=== PATIENT | female | born 1940 | race Caucasian/White ===

== ENCOUNTER 2018-04-12 13:47 | Inpatient (IN) | payer OTHER ==
[~2018-04-12] VITALS: Ht 170.2 cm; Wt 132.6 kg
[~2018-04-12 13:47] MED LIST: CEFD300C37 PO; COLE625T12 PO; DOXY100T PO; FLUT1DIS3 INH; FURO-92 PO; IPRA3AMP30 INH; LIDO20SO MM; LOSA25TA6 PO; METF500T27 PO; NYST1000 PO; PARO20TA98 PO; PRED20TA PO; SPIR100T4 PO; TIOT18CA INH; ZOLP-413 PO
[2018-04-12] MEDS ORDERED: ALBUTEROL/IPRATROPIUM 2.5MG/0.5MG, 3 ML NEB ONE (14:00)
[2018-04-12] MEDS ORDERED: SODIUM CHLORIDE FLUSH 10ML SYR IVF ONE (14:00)
[2018-04-12] MEDS ORDERED: PLEASE ENTER HEIGHT AND WEIGHT MC SCH (14:00)
[2018-04-12] MEDS ORDERED: methylPREDNISolone SOD SUCC 125 MG/2 ML IVP ONE (14:00)
[2018-04-12] MEDS ORDERED: ALBUTEROL/IPRATROPIUM 2.5MG/0.5MG, 3 ML ONE ×2 (14:05→14:20)
[2018-04-12] MEDS ORDERED: methylPREDNISolone SOD SUCC 125 MG/2 ML ONE (14:20)
[2018-04-12 14:34] LABS: CHLORIDE 100 mmol/L (98-107)
[2018-04-12 14:38] LABS: INTERNATIONAL NORMALIZED RATIO 0.97 (0.93-1.1)
[2018-04-12 14:40] LABS: ALBUMIN 3.1 g/dL (3.4-5.0); ANION GAP 7 mmol/L (5-15); CALCIUM 8.6 mg/dL (8.5-10.1)
[2018-04-12 14:59] LABS: ALANINE AMINOTRANSFERASE 27 U/L (12-78); ALKALINE PHOSPHATASE 102 U/L (45-117); BILIRUBIN,TOTAL 0.6 mg/dL (0.2-1.0); CREATININE 0.74 mg/dL (0.55-1.02); TOTAL PROTEIN 7.7 g/dL (6.4-8.2)
[2018-04-12] MEDS ORDERED: CEFTRIAXONE 1,000 MG in SODIUM CHLORIDE 0.9% 50 ML IV ONE (15:00)
[2018-04-12] MEDS ORDERED: FUROSEMIDE 40 MG/4 ML IV ONE (15:00)
[2018-04-12] MEDS ORDERED: AZITHROMYCIN 500 MG in SODIUM CHLORIDE 0.9% 250 ML IV ONE (15:00)
[2018-04-12 15:05] LABS: TROPONIN I 0.194 ng/mL (0.000-0.045)
[2018-04-12 15:06] LABS: MEAN CORPUSCULAR HEMOGLOBIN 28.5 pg (27.0-34.8); MEAN PLATELET VOLUME 8.3 fL (7.4-10.4); PLATELET COUNT 340 x10^3/uL (130-400); RED CELL DISTRIBUTION WIDTH 16.2 % (9.6-15.2)
[2018-04-12 15:10] LABS: MD YES
[2018-04-12] MEDS ORDERED: CEFTRIAXONE PMX 1GM/50ML 50 ML ONE (15:10)
[2018-04-12] MEDS ORDERED: FUROSEMIDE 40 MG/4 ML ONE (15:10)
[2018-04-12] MEDS ORDERED: ALBUTEROL SULFATE 2.5 MG/3 ML NPPB ONE (15:30)
[2018-04-12 15:55] LABS: BAND#(MANUAL) 1.32 x10^3/uL; BANDS%(MANUAL) 6 % (0-7); LYMPHS% (MANUAL) 10 % (22-44); MONOS% (MANUAL) 10 % (2-9); SEG#(MANUAL) 16.28 x10^3/uL (1.8-6.8); SEGS% (MANUAL) 74 % (42-75)
[2018-04-12 15:56] LABS: HYPOCHROMIA 1+; MICROCYTOSIS 1+; POLYCHROMASIA 1+
[2018-04-12 15:57] LABS: <PLATELET ESTIMATE> ADEQUATE; <PLT MORPHOLOGY> NORMAL PLT MORPH
[2018-04-12] MEDS ORDERED: ASPIRIN 81 MG TABLET CHEW ONE (16:48)
[2018-04-12] MEDS ORDERED: ASPIRIN 81 MG TABLET CHEW PO ONE (17:00)
[2018-04-12] MEDS ORDERED: ALBUTEROL SULFATE 2.5 MG/3 ML ONE (17:23)
[2018-04-12] MEDS ORDERED: TRAZODONE 50MG TABLET PO PRN (17:30)
[2018-04-12] MEDS ORDERED: ONDANSETRON ODT 4 MG PO PRN (17:30)
[2018-04-12] MEDS ORDERED: BISACODYL 10 MG SUPP PR PRN (17:30)
[2018-04-12] MEDS ORDERED: hydrALAzine 20 MG/ML, 1ML IVPush PRN (17:30)
[2018-04-12] MEDS ORDERED: DOCUSATE 100 MG CAPSULE PO PRN (17:30)
[2018-04-12] MEDS ORDERED: NITROGLYCERIN 0.4 MG BOTTLE (25 TABS) SL PRN (17:30)
[2018-04-12] MEDS ORDERED: ENALAPRILAT 1.25 MG/ML, 2ML IVPush PRN (17:30)
[2018-04-12 17:56] LABS: HCT (SEDRATE) 34.1 % (34.6-47.8)
[2018-04-12 18:12] LABS: TROPONIN I 0.152 ng/mL (0.000-0.045)
[2018-04-12 18:23] LABS: HEMOGLOBIN A1C 6.2 % (4.2-6.3)
[2018-04-12 20:00] VITALS: BP 111/69
[2018-04-12] MEDS: methylPREDNISolone SOD SUCC 125 MG/2 ML IVPush SCH (21:50)
[2018-04-12] MEDS: LEVOFLOXACIN/PMX 750MG/150ML 150 ML IV SCH (21:50)
[2018-04-12] MEDS: FAMOTIDINE 20 MG TABLET PO SCH (21:50)
[2018-04-12] MEDS: HEPARIN 5,000 UNITS/ML, 1ML SQ SCH (21:50)
[2018-04-12] MEDS: INSULIN LISPRO 100 UNITS/ML, PEN SQ-INSULIN SCH (21:51)
[2018-04-12] MEDS: ALBUTEROL/IPRATROPIUM 2.5MG/0.5MG, 3 ML NPPB SCH (22:00)
[2018-04-12 23:31] LABS: TROPONIN I 0.137 ng/mL (0.000-0.045)
[2018-04-13 02:00] VITALS: BP 145/77
[2018-04-13] MEDS: methylPREDNISolone SOD SUCC 125 MG/2 ML IVPush SCH ×4 (03:41→21:01)
[2018-04-13] MEDS: ASPIRIN 325 MG TABLET EC PO SCH (05:03)
[2018-04-13] MEDS: HEPARIN 5,000 UNITS/ML, 1ML SQ SCH ×3 (05:25→23:13)
[2018-04-13 05:51] LABS: BASOPHILS % (AUTO) 0 % (0-1); EOSINOPHILS % (AUTO) 0 % (1-7); LYMPHOCYTES # (AUTO) 0.64 x10^3/uL (1-3.4); LYMPHOCYTES % (AUTO) 4 % (22-44); MD NO; MEAN CORPUSCULAR HEMOGLOBIN 28.4 pg (27.0-34.8); MEAN CORPUSCULAR HGB CONC 32.4 g/dL (32.4-35.8); MEAN CORPUSCULAR VOLUME 87.6 fL (80-100); MEAN PLATELET VOLUME 7.9 fL (7.4-10.4); MONOCYTES # (AUTO) 0.36 x10^3/uL (0.2-0.8); MONOCYTES % (AUTO) 2 % (2-9); NEUTROPHILS # (AUTO) 15.27 x10^3/uL (1.8-6.8); NEUTROPHILS % (AUTO) 94 % (42-75); PLATELET COUNT 384 x10^3/uL (130-400); RED BLOOD COUNT 4.03 x10^6/uL (3.82-5.3); RED CELL DISTRIBUTION WIDTH 16.2 % (9.6-15.2)
[2018-04-13 06:04] LABS: ANION GAP 4 mmol/L (5-15); CALCIUM 8.9 mg/dL (8.5-10.1); CHLORIDE 100 mmol/L (98-107); CHOLESTEROL, TOTAL 161 mg/dL (140-239); CREATININE 0.91 mg/dL (0.55-1.02); TRIGLYCERIDES 105 mg/dL (50-200); VLDL CHOLESTEROL 21 mg/dL (0-25)
[2018-04-13 06:07] LABS: CHOL/HDL RATIO 2.4; HDL CHOL % 41 % (28-40); HDL CHOLESTEROL (DIRECT) 66 mg/dL (40-60); LDL CHOLESTEROL,CALCULATED 74 mg/dL (54-169); LDL/HDL RATIO 1.1 (0.5-3.0)
[2018-04-13 06:16] LABS: MICROSCOPIC INDICATED
[2018-04-13 06:17] LABS: CULTURE INDICATED? YES
[2018-04-13 07:20] VITALS: BP 124/76
[2018-04-13] MEDS: ALBUTEROL/IPRATROPIUM 2.5MG/0.5MG, 3 ML NPPB SCH ×5 (07:45→22:44)
[2018-04-13] MEDS: FAMOTIDINE 20 MG TABLET PO SCH ×2 (08:52→21:01)
[2018-04-13] MEDS: INSULIN LISPRO 100 UNITS/ML, PEN SQ-INSULIN SCH ×4 (08:52→21:01)
[2018-04-13 14:19] VITALS: BP 128/79
[2018-04-13 20:58] VITALS: BP 126/72
[2018-04-13] MEDS: LEVOFLOXACIN/PMX 750MG/150ML 150 ML IV SCH (21:00)
[2018-04-14] MEDS: GUAIFENESIN/DM 200-20MG, 10ML UDC PO PRN (01:25)
[2018-04-14 01:36] VITALS: BP 135/43
[2018-04-14] MEDS: methylPREDNISolone SOD SUCC 125 MG/2 ML IVPush SCH ×4 (03:06→21:06)
[2018-04-14] MEDS: ALBUTEROL/IPRATROPIUM 2.5MG/0.5MG, 3 ML NPPB SCH ×6 (03:19→22:00)
[2018-04-14] MEDS ORDERED: HYDROcodone/CHLORPHENIR ORAL SUSP PO ONE (03:30)
[2018-04-14] MEDS: BENZONATATE 100 MG CAPSULE PO SCH ×4 (03:35→21:04)
[2018-04-14] MEDS: ASPIRIN 325 MG TABLET EC PO SCH (05:12)
[2018-04-14 06:21] LABS: ANION GAP 4 mmol/L (5-15); CALCIUM 8.8 mg/dL (8.5-10.1); CHLORIDE 101 mmol/L (98-107); CREATININE 0.96 mg/dL (0.55-1.02)
[2018-04-14 06:23] LABS: BASOPHILS % (AUTO) 0 % (0-1); EOSINOPHILS % (AUTO) 0 % (1-7); LYMPHOCYTES # (AUTO) 0.52 x10^3/uL (1-3.4); LYMPHOCYTES % (AUTO) 3 % (22-44); MD NO; MEAN CORPUSCULAR HEMOGLOBIN 27.7 pg (27.0-34.8); MEAN CORPUSCULAR HGB CONC 31.9 g/dL (32.4-35.8); MEAN CORPUSCULAR VOLUME 86.9 fL (80-100); MEAN PLATELET VOLUME 7.7 fL (7.4-10.4); MONOCYTES # (AUTO) 0.47 x10^3/uL (0.2-0.8); MONOCYTES % (AUTO) 3 % (2-9); NEUTROPHILS # (AUTO) 14.41 x10^3/uL (1.8-6.8); NEUTROPHILS % (AUTO) 94 % (42-75); PLATELET COUNT 382 x10^3/uL (130-400); RED BLOOD COUNT 3.59 x10^6/uL (3.82-5.3); RED CELL DISTRIBUTION WIDTH 15.9 % (9.6-15.2)
[2018-04-14 07:47] VITALS: BP 138/80
[2018-04-14] MEDS: HEPARIN 5,000 UNITS/ML, 1ML SQ SCH ×2 (08:42→16:21)
[2018-04-14] MEDS: INSULIN LISPRO 100 UNITS/ML, PEN SQ-INSULIN SCH ×4 (08:43→21:06)
[2018-04-14] MEDS: FAMOTIDINE 20 MG TABLET PO SCH ×2 (08:44→21:05)
[2018-04-14] MEDS ORDERED: GABA800T2 PO (10:07)
[2018-04-14 13:06] VITALS: BP 135/73
[2018-04-14 20:42] VITALS: BP 127/67
[2018-04-14] MEDS: PAROXETINE 20 MG TABLET PO SCH (21:05)
[2018-04-14] MEDS: GABAPENTIN 400 MG CAPSULE PO SCH (21:05)
[2018-04-14] MEDS: COLESEVELAM 625 MG TABLET PO SCH (21:05)
[2018-04-14] MEDS: LEVOFLOXACIN/PMX 750MG/150ML 150 ML IV SCH (21:06)
[2018-04-15] MEDS: HEPARIN 5,000 UNITS/ML, 1ML SQ SCH ×3 (00:10→16:44)
[2018-04-15 01:14] VITALS: BP 141/71
[2018-04-15] MEDS: methylPREDNISolone SOD SUCC 125 MG/2 ML IVPush SCH ×4 (03:25→20:42)
[2018-04-15 05:07] LABS: BASOPHILS % (AUTO) 0 % (0-1); EOSINOPHILS % (AUTO) 0 % (1-7); LYMPHOCYTES # (AUTO) 0.61 x10^3/uL (1-3.4); LYMPHOCYTES % (AUTO) 4 % (22-44); MD NO; MEAN CORPUSCULAR HEMOGLOBIN 28.4 pg (27.0-34.8); MEAN CORPUSCULAR HGB CONC 32.1 g/dL (32.4-35.8); MEAN CORPUSCULAR VOLUME 88.4 fL (80-100); MEAN PLATELET VOLUME 7.7 fL (7.4-10.4); MONOCYTES # (AUTO) 0.52 x10^3/uL (0.2-0.8); MONOCYTES % (AUTO) 4 % (2-9); NEUTROPHILS # (AUTO) 13.12 x10^3/uL (1.8-6.8); NEUTROPHILS % (AUTO) 92 % (42-75); PLATELET COUNT 379 x10^3/uL (130-400); RED BLOOD COUNT 3.77 x10^6/uL (3.82-5.3); RED CELL DISTRIBUTION WIDTH 15.8 % (9.6-15.2)
[2018-04-15 05:26] LABS: ANION GAP 5 mmol/L (5-15); CALCIUM 8.5 mg/dL (8.5-10.1); CHLORIDE 102 mmol/L (98-107); CREATININE 0.81 mg/dL (0.55-1.02)
[2018-04-15] MEDS: ASPIRIN 325 MG TABLET EC PO SCH (05:35)
[2018-04-15] MEDS: ALBUTEROL/IPRATROPIUM 2.5MG/0.5MG, 3 ML NPPB SCH ×5 (06:00→21:22)
[2018-04-15] MEDS: INSULIN LISPRO 100 UNITS/ML, PEN SQ-INSULIN SCH ×4 (07:00→20:44)
[2018-04-15 07:19] VITALS: BP 158/94
[2018-04-15] MEDS: FAMOTIDINE 20 MG TABLET PO SCH ×2 (09:32→20:42)
[2018-04-15] MEDS: COLESEVELAM 625 MG TABLET PO SCH ×2 (09:32→20:42)
[2018-04-15] MEDS: BENZONATATE 100 MG CAPSULE PO SCH ×3 (09:33→20:42)
[2018-04-15] MEDS: GABAPENTIN 400 MG CAPSULE PO SCH ×2 (09:33→20:42)
[2018-04-15 13:49] VITALS: BP 169/85
[2018-04-15] MEDS ORDERED: GUAIFENESIN/DM 200-20MG, 10ML UDC PO PRN (16:30)
[2018-04-15] MEDS: GUAIFENESIN/DM 200-20MG, 10ML UDC PO PRN (16:44)
[2018-04-15 20:38] VITALS: BP 144/82
[2018-04-15] MEDS: LEVOFLOXACIN/PMX 750MG/150ML 150 ML IV SCH (20:43)
[2018-04-15] MEDS: PAROXETINE 20 MG TABLET PO SCH (20:57)
[2018-04-15] MEDS: LEVOFLOXACIN 750 MG TABLET PO SCH (21:00)
[2018-04-16 02:17] VITALS: BP 155/76
[2018-04-16] MEDS: methylPREDNISolone SOD SUCC 125 MG/2 ML IVPush SCH ×4 (03:17→21:54)
[2018-04-16] MEDS: ASPIRIN 325 MG TABLET EC PO SCH (05:39)
[2018-04-16 06:10] LABS: MEAN CORPUSCULAR VOLUME 87.8 fL (80-100); MEAN PLATELET VOLUME 7.7 fL (7.4-10.4); PLATELET COUNT 397 x10^3/uL (130-400); RED BLOOD COUNT 3.82 x10^6/uL (3.82-5.3)
[2018-04-16 06:14] LABS: CHLORIDE 100 mmol/L (98-107)
[2018-04-16 06:15] LABS: ANION GAP 4 mmol/L (5-15); CALCIUM 8.4 mg/dL (8.5-10.1); CREATININE 0.81 mg/dL (0.55-1.02)
[2018-04-16] MEDS: ALBUTEROL/IPRATROPIUM 2.5MG/0.5MG, 3 ML NPPB SCH ×5 (06:45→22:00)
[2018-04-16] MEDS: INSULIN LISPRO 100 UNITS/ML, PEN SQ-INSULIN SCH ×4 (07:00→22:00)
[2018-04-16 07:36] LABS: BASOPHILS % (AUTO) 0 % (0-1); EOSINOPHILS # (AUTO) 0.01 x10^3/uL (0-0.4); EOSINOPHILS % (AUTO) 0 % (1-7); LYMPHOCYTES # (AUTO) 0.73 x10^3/uL (1-3.4); LYMPHOCYTES % (AUTO) 5 % (22-44); MD MORPH REVIEW ONLY; MONOCYTES # (AUTO) 0.61 x10^3/uL (0.2-0.8); MONOCYTES % (AUTO) 4 % (2-9); NEUTROPHILS # (AUTO) 14.91 x10^3/uL (1.8-6.8); NEUTROPHILS % (AUTO) 92 % (42-75)
[2018-04-16 07:38] LABS: ANISOCYTOSIS 1+; BASOPHILLIC STIPPLING 1+; POLYCHROMASIA 1+
[2018-04-16 07:39] LABS: <PLATELET ESTIMATE> ADEQUATE; <PLT MORPHOLOGY> NORMAL PLT MORPH
[2018-04-16 08:00] VITALS: BP 179/117
[2018-04-16] MEDS: BENZONATATE 100 MG CAPSULE PO SCH ×3 (08:34→21:55)
[2018-04-16] MEDS: COLESEVELAM 625 MG TABLET PO SCH ×2 (08:34→21:54)
[2018-04-16] MEDS: HEPARIN 5,000 UNITS/ML, 1ML SQ SCH ×3 (08:34→16:33)
[2018-04-16] MEDS: FAMOTIDINE 20 MG TABLET PO SCH ×2 (08:34→21:55)
[2018-04-16] MEDS: GABAPENTIN 400 MG CAPSULE PO SCH ×2 (08:34→21:54)
[2018-04-16 14:08] VITALS: BP 149/79
[2018-04-16] MEDS: GUAIFENESIN/DM 200-20MG, 10ML UDC PO PRN (14:10)
[2018-04-16] MEDS: LEVOFLOXACIN 750 MG TABLET PO SCH (21:55)
[2018-04-16] MEDS: PAROXETINE 20 MG TABLET PO SCH (21:55)
[2018-04-16 22:49] VITALS: BP 163/77
[2018-04-17] MEDS: HEPARIN 5,000 UNITS/ML, 1ML SQ SCH ×3 (00:38→16:37)
[2018-04-17 00:39] VITALS: BP 136/72
[2018-04-17] MEDS: methylPREDNISolone SOD SUCC 125 MG/2 ML IVPush SCH ×4 (03:42→21:57)
[2018-04-17] MEDS: ASPIRIN 325 MG TABLET EC PO SCH (05:58)
[2018-04-17 06:03] LABS: MEAN CORPUSCULAR HEMOGLOBIN 28.2 pg (27.0-34.8); MEAN CORPUSCULAR HGB CONC 32.1 g/dL (32.4-35.8); MEAN CORPUSCULAR VOLUME 88.1 fL (80-100); MEAN PLATELET VOLUME 7.1 fL (7.4-10.4); PLATELET COUNT 362 x10^3/uL (130-400); RED BLOOD COUNT 3.85 x10^6/uL (3.82-5.3); RED CELL DISTRIBUTION WIDTH 15.3 % (9.6-15.2)
[2018-04-17 06:19] LABS: CHLORIDE 102 mmol/L (98-107)
[2018-04-17 06:29] LABS: ANION GAP 7 mmol/L (5-15); CREATININE 0.81 mg/dL (0.55-1.02)
[2018-04-17 07:00] LABS: MD YES
[2018-04-17] MEDS: INSULIN LISPRO 100 UNITS/ML, PEN SQ-INSULIN SCH ×4 (07:00→21:26)
[2018-04-17 07:01] LABS: BAND#(MANUAL) 1.18 x10^3/uL; BANDS%(MANUAL) 7 % (0-7); LYMPH#(MANUAL) 1.18 x10^3/uL (1-3.4); LYMPHS% (MANUAL) 7 % (22-44); METAMYELOCYTES# (MANUAL) 0.34 x10^3/uL (0-0); METAMYELOCYTES% (MANUAL) 2 % (0-1); MONOS% (MANUAL) 3 % (2-9); MYELOCYTES# (MANUAL) 0.17 x10^3/uL (0-0); MYELOCYTES% (MANUAL) 1 % (0-0); SEG#(MANUAL) 13.44 x10^3/uL (1.8-6.8); SEGS% (MANUAL) 80 % (42-75)
[2018-04-17 07:02] LABS: ANISOCYTOSIS 1+; BASOPHILLIC STIPPLING 1+; POLYCHROMASIA 1+
[2018-04-17 07:03] LABS: <PLATELET ESTIMATE> ADEQUATE; <PLT MORPHOLOGY> NORMAL PLT MORPH
[2018-04-17] MEDS: ALBUTEROL/IPRATROPIUM 2.5MG/0.5MG, 3 ML NPPB SCH ×4 (07:15→18:59)
[2018-04-17] MEDS: GABAPENTIN 400 MG CAPSULE PO SCH ×2 (07:59→21:23)
[2018-04-17] MEDS: FAMOTIDINE 20 MG TABLET PO SCH ×2 (07:59→21:24)
[2018-04-17] MEDS: COLESEVELAM 625 MG TABLET PO SCH ×2 (07:59→21:23)
[2018-04-17] MEDS: BENZONATATE 100 MG CAPSULE PO SCH ×3 (07:59→21:24)
[2018-04-17 08:18] VITALS: BP 155/81
[2018-04-17 13:50] VITALS: BP 179/89
[2018-04-17 14:35] VITALS: BP 155/85
[2018-04-17 19:06] VITALS: BP 142/62
[2018-04-17] MEDS: HEMORRHOIDAL OINT, 28 GM (PREP H) RC PRN (21:20)
[2018-04-17] MEDS: LEVOFLOXACIN 750 MG TABLET PO SCH (21:23)
[2018-04-17] MEDS: PAROXETINE 20 MG TABLET PO SCH (21:23)
[2018-04-18] MEDS: HEPARIN 5,000 UNITS/ML, 1ML SQ SCH ×3 (00:27→16:58)
[2018-04-18 00:59] VITALS: BP 135/67
[2018-04-18] MEDS: methylPREDNISolone SOD SUCC 125 MG/2 ML IVPush SCH ×2 (03:16→09:05)
[2018-04-18] MEDS: ASPIRIN 325 MG TABLET EC PO SCH (04:57)
[2018-04-18 07:00] VITALS: BP 159/76
[2018-04-18] MEDS: INSULIN LISPRO 100 UNITS/ML, PEN SQ-INSULIN SCH ×4 (07:00→21:49)
[2018-04-18 07:02] LABS: CALCIUM 8.1 mg/dL (8.5-10.1); CREATININE 0.77 mg/dL (0.55-1.02)
[2018-04-18 07:10] LABS: ANION GAP 4 mmol/L (5-15); CHLORIDE 100 mmol/L (98-107)
[2018-04-18 07:38] LABS: MEAN CORPUSCULAR HEMOGLOBIN 27.9 pg (27.0-34.8); MEAN CORPUSCULAR VOLUME 86.9 fL (80-100); MEAN PLATELET VOLUME 7.1 fL (7.4-10.4); PLATELET COUNT 371 x10^3/uL (130-400); RED BLOOD COUNT 3.96 x10^6/uL (3.82-5.3); RED CELL DISTRIBUTION WIDTH 15.8 % (9.6-15.2)
[2018-04-18] MEDS: ALBUTEROL/IPRATROPIUM 2.5MG/0.5MG, 3 ML NPPB SCH ×4 (07:55→18:50)
[2018-04-18 08:02] LABS: MD YES
[2018-04-18 08:03] LABS: LYMPH#(MANUAL) 1.63 x10^3/uL (1-3.4); LYMPHS% (MANUAL) 9 % (22-44); METAMYELOCYTES# (MANUAL) 0.36 x10^3/uL (0-0); METAMYELOCYTES% (MANUAL) 2 % (0-1); MONOS#(MANUAL) 1.27 x10^3/uL (0.3-2.7); MONOS% (MANUAL) 7 % (2-9); MYELOCYTES# (MANUAL) 0.18 x10^3/uL (0-0); MYELOCYTES% (MANUAL) 1 % (0-0)
[2018-04-18 08:04] LABS: BAND#(MANUAL) 0.91 x10^3/uL; BANDS%(MANUAL) 5 % (0-7); SEGS% (MANUAL) 76 % (42-75)
[2018-04-18 08:05] LABS: <PLATELET ESTIMATE> ADEQUATE; <PLT MORPHOLOGY> NORMAL PLT MORPH
[2018-04-18 08:06] LABS: ANISOCYTOSIS 1+
[2018-04-18] MEDS: FAMOTIDINE 20 MG TABLET PO SCH ×2 (09:05→21:48)
[2018-04-18] MEDS: GABAPENTIN 400 MG CAPSULE PO SCH ×2 (09:05→21:49)
[2018-04-18] MEDS: BENZONATATE 100 MG CAPSULE PO SCH ×3 (09:05→21:48)
[2018-04-18] MEDS: COLESEVELAM 625 MG TABLET PO SCH ×2 (09:06→21:48)
[2018-04-18] MEDS: HEMORRHOIDAL OINT, 28 GM (PREP H) RC PRN ×2 (12:24→18:17)
[2018-04-18 12:55] VITALS: BP 159/88
[2018-04-18 18:59] VITALS: BP 151/78
[2018-04-18] MEDS: LEVOFLOXACIN 750 MG TABLET PO SCH (21:48)
[2018-04-18] MEDS: PAROXETINE 20 MG TABLET PO SCH (21:49)
[2018-04-19] MEDS: HEPARIN 5,000 UNITS/ML, 1ML SQ SCH ×3 (00:17→16:08)
[2018-04-19 01:21] VITALS: BP 151/69
[2018-04-19] MEDS: HEMORRHOIDAL OINT, 28 GM (PREP H) RC PRN ×2 (04:39→22:10)
[2018-04-19] MEDS: ASPIRIN 325 MG TABLET EC PO SCH (06:26)
[2018-04-19] MEDS: ALBUTEROL/IPRATROPIUM 2.5MG/0.5MG, 3 ML NPPB SCH ×4 (07:00→19:33)
[2018-04-19] MEDS: INSULIN LISPRO 100 UNITS/ML, PEN SQ-INSULIN SCH ×4 (07:00→21:30)
[2018-04-19 07:11] VITALS: BP 157/81
[2018-04-19] MEDS: ACETAMINOPHEN 325 MG TABLET PO PRN (07:35)
[2018-04-19] MEDS: GABAPENTIN 400 MG CAPSULE PO SCH ×2 (08:28→21:31)
[2018-04-19] MEDS: FAMOTIDINE 20 MG TABLET PO SCH ×2 (08:28→21:30)
[2018-04-19] MEDS: BENZONATATE 100 MG CAPSULE PO SCH ×3 (08:28→21:31)
[2018-04-19] MEDS: COLESEVELAM 625 MG TABLET PO SCH ×2 (08:29→21:31)
[2018-04-19 12:13] VITALS: BP 133/72
[2018-04-19 20:35] VITALS: BP 153/77
[2018-04-19] MEDS: PAROXETINE 20 MG TABLET PO SCH (21:31)
[2018-04-20] MEDS: HEPARIN 5,000 UNITS/ML, 1ML SQ SCH ×3 (00:16→16:00)
[2018-04-20] MEDS: ACETAMINOPHEN 325 MG TABLET PO PRN ×2 (00:16→08:28)
[2018-04-20 01:15] VITALS: BP 157/83
[2018-04-20] MEDS: ASPIRIN 325 MG TABLET EC PO SCH (06:00)
[2018-04-20 06:24] LABS: MEAN CORPUSCULAR HGB CONC 32.1 g/dL (32.4-35.8); MEAN CORPUSCULAR VOLUME 87.3 fL (80-100); MEAN PLATELET VOLUME 7.2 fL (7.4-10.4); PLATELET COUNT 326 x10^3/uL (130-400); RED BLOOD COUNT 3.87 x10^6/uL (3.82-5.3); RED CELL DISTRIBUTION WIDTH 16.4 % (9.6-15.2)
[2018-04-20 06:26] LABS: CHLORIDE 98 mmol/L (98-107)
[2018-04-20 06:32] LABS: ANION GAP 4 mmol/L (5-15); CALCIUM 7.8 mg/dL (8.5-10.1)
[2018-04-20 06:40] VITALS: BP 162/77
[2018-04-20 06:43] LABS: BASOPHILS # (AUTO) 0.02 x10^3/uL (0-0.1); BASOPHILS % (AUTO) 0 % (0-1); EOSINOPHILS # (AUTO) 0.02 x10^3/uL (0-0.4); EOSINOPHILS % (AUTO) 0 % (1-7); LYMPHOCYTES % (AUTO) 6 % (22-44); MD SCAN; MONOCYTES # (AUTO) 0.89 x10^3/uL (0.2-0.8); MONOCYTES % (AUTO) 5 % (2-9); NEUTROPHILS # (AUTO) 17.91 x10^3/uL (1.8-6.8); NEUTROPHILS % (AUTO) 89 % (42-75)
[2018-04-20] MEDS: INSULIN LISPRO 100 UNITS/ML, PEN SQ-INSULIN SCH ×3 (07:00→16:00)
[2018-04-20] MEDS: ALBUTEROL/IPRATROPIUM 2.5MG/0.5MG, 3 ML NPPB SCH ×3 (07:20→14:14)
[2018-04-20] MEDS: BENZONATATE 100 MG CAPSULE PO SCH ×2 (08:11→16:00)
[2018-04-20] MEDS: FAMOTIDINE 20 MG TABLET PO SCH (08:11)
[2018-04-20] MEDS: COLESEVELAM 625 MG TABLET PO SCH (08:11)
[2018-04-20] MEDS: GABAPENTIN 400 MG CAPSULE PO SCH (08:12)
[2018-04-20 12:06] VITALS: BP 150/71
[2018-04-20] MEDS ORDERED: BENZ-17 PO (14:14)
[2018-04-20] MEDS ORDERED: PRED20TA PO (14:14)
[2018-04-20] MEDS ORDERED: FURO-92 PO (14:14)
== END 2018-04-20 18:02 | disposition home health service (06) | DRG 871 ==
LOC: ED 16:41 → EDIP 16:42 → ED 16:51 → 4WST 17:52
PROVIDERS: ADMIT Hospitalist; ATTEND Hospitalist
PROC: 5A09357 Assistance with Respiratory Ventilation, Less than 24 Consecutive Hours, Continuous Positive Airway Pressure (ICD-10-PCS; principal; 2018-04-12)
PROC: 5A09357 Assistance with Respiratory Ventilation, Less than 24 Consecutive Hours, Continuous Positive Airway Pressure (ICD-10-PCS; 2018-04-13)
PROC: 5A09357 Assistance with Respiratory Ventilation, Less than 24 Consecutive Hours, Continuous Positive Airway Pressure (ICD-10-PCS; 2018-04-15)
PROC: 5A09357 Assistance with Respiratory Ventilation, Less than 24 Consecutive Hours, Continuous Positive Airway Pressure (ICD-10-PCS; 2018-04-16)
PROC: 5A09357 Assistance with Respiratory Ventilation, Less than 24 Consecutive Hours, Continuous Positive Airway Pressure (ICD-10-PCS; 2018-04-17)
DX: A41.9 Sepsis, unspecified organism (principal); I50.33 Acute on chronic diastolic (congestive) heart failure; J96.21 Acute and chronic respiratory failure with hypoxia; J18.9 Pneumonia, unspecified organism; J44.1 Chronic obstructive pulmonary disease with (acute) exacerbation; J44.0 Chronic obstructive pulmonary disease with (acute) lower respiratory infection; Z68.42 Body mass index [BMI] 45.0-49.9, adult; I11.0 Hypertensive heart disease with heart failure; T38.0X5A Adverse effect of glucocorticoids and synthetic analogues, initial encounter; E11.65 Type 2 diabetes mellitus with hyperglycemia; E66.9 Obesity, unspecified; G47.33 Obstructive sleep apnea (adult) (pediatric); D72.829 Elevated white blood cell count, unspecified; Z87.891 Personal history of nicotine dependence; Z90.710 Acquired absence of both cervix and uterus; Z99.81 Dependence on supplemental oxygen; Z90.49 Acquired absence of other specified parts of digestive tract
CPT/HCPCS: 36415; 71045; 71046; 80048; 80053; 80061; 81001; 82962; 83036; 83605; 83735; 83880; 84100; 84145; 84439; 84443; 84484; 85025; 85610; 85651; 85730; 87040; 87086; 93005; 93306; 93970; 94640; 96365; 96366; 96367; 96375; 99291; G0378; J0456; J0696; J1644; J1940; J1956; J7613; J7620; J1815; J2930; J7050; J7512

== ENCOUNTER 2020-04-08 14:07 | Emergency (ER) | payer MEDICARE ==
[~2020-04-08] VITALS: Ht 170.2 cm; Wt 122.0 kg
[~2020-04-08 14:07] MED LIST changes: +BENZ-17 PO; +GABA800T5 PO; +LOSA25TA25 PO; -LOSA25TA6 PO
--- NOTE | 2020-04-08 14:20 | NUR ---
PT REPORTS INCREASE IN PAIN ON RIGHT LOWER LEG WOUND. PLACED ON VITALS MONITORS, FALL PRECAUTIONS IN PLACE. CALL LIGHT WITHIN REACH.
[2020-04-08] MEDS ORDERED: SODIUM CHLORIDE FLUSH 10ML SYR IVF ONE (14:30)
[2020-04-08] MEDS ORDERED: HYDROcodone/APAP 5/325 TABLET ONE (14:38)
[2020-04-08 14:45] LABS: BASOPHILS # (AUTO) 0.01 x10^3/uL (0-0.1); BASOPHILS % (AUTO) 0 % (0-1); EOSINOPHILS # (AUTO) 0.32 x10^3/uL (0-0.4); EOSINOPHILS % (AUTO) 3 % (1-7); LYMPHOCYTES # (AUTO) 1.33 x10^3/uL (1-3.4); LYMPHOCYTES % (AUTO) 11 % (22-44); MD NO; MEAN CORPUSCULAR HEMOGLOBIN 27.3 pg (27.0-34.8); MEAN CORPUSCULAR HGB CONC 31.2 g/dL (32.4-35.8); MEAN CORPUSCULAR VOLUME 87.4 fL (80-100); MONOCYTES # (AUTO) 0.84 x10^3/uL (0.2-0.8); MONOCYTES % (AUTO) 7 % (2-9); NEUTROPHILS # (AUTO) 10.12 x10^3/uL (1.8-6.8); NEUTROPHILS % (AUTO) 80 % (42-75); PLATELET COUNT 516 x10^3/uL (130-400); RED BLOOD COUNT 3.83 x10^6/uL (3.82-5.3); RED CELL DISTRIBUTION WIDTH 15.3 % (9.6-15.2)
[2020-04-08 14:54] LABS: ALBUMIN 2.8 g/dL (3.4-5.0); ANION GAP 4 mmol/L (5-15); CALCIUM 8.8 mg/dL (8.5-10.1); CHLORIDE 100 mmol/L (98-107); CREATININE 0.71 mg/dL (0.55-1.02)
[2020-04-08] MEDS ORDERED: HYDROcodone/APAP 5/325 TABLET PO ONE (15:00)
--- NOTE | 2020-04-08 15:04 | NUR ---
US AT BEDSIDE.
--- NOTE | 2020-04-08 15:59 | NUR ---
Chart up for recheck awaiting recheck.
[2020-04-08 17:06] VITALS: BP 122/56
== END 2020-04-08 17:39 | disposition home or self-care (01) ==
LOC: ED 14:46
DX: I83.213 Varicose veins of right lower extremity with both ulcer of ankle and inflammation (principal); J44.9 Chronic obstructive pulmonary disease, unspecified; E11.9 Type 2 diabetes mellitus without complications
CPT/HCPCS: 36415; 80048; 82040; 85025; 99284

== ENCOUNTER 2020-04-19 12:34 | Outpatient (CLI) | payer MEDICARE | END 2020-04-19 23:59 | disposition home or self-care (01) | LOC: WOUND 12:34 | PROVIDERS: ATTEND Family Medicine | DX: I83.212 Varicose veins of right lower extremity with both ulcer of calf and inflammation (principal); E11.622 Type 2 diabetes mellitus with other skin ulcer; L97.211 Non-pressure chronic ulcer of right calf limited to breakdown of skin; J44.9 Chronic obstructive pulmonary disease, unspecified; E66.01 Morbid (severe) obesity due to excess calories; E78.5 Hyperlipidemia, unspecified; Z87.891 Personal history of nicotine dependence; Z90.49 Acquired absence of other specified parts of digestive tract; Z68.41 Body mass index [BMI] 40.0-44.9, adult | CPT/HCPCS: 97597; 97598; G0463; 99214 ==

== ENCOUNTER → 2020-04-24 | Outpatient (CLI) | payer MEDICARE | END | disposition home or self-care (01) | LOC: WOUND 14:36 | PROVIDERS: ATTEND Internal Medicine | DX: I83.212 Varicose veins of right lower extremity with both ulcer of calf and inflammation (principal); E11.622 Type 2 diabetes mellitus with other skin ulcer; L97.211 Non-pressure chronic ulcer of right calf limited to breakdown of skin; J44.9 Chronic obstructive pulmonary disease, unspecified; E78.5 Hyperlipidemia, unspecified; E66.01 Morbid (severe) obesity due to excess calories; Z68.41 Body mass index [BMI] 40.0-44.9, adult; Z90.49 Acquired absence of other specified parts of digestive tract; Z87.891 Personal history of nicotine dependence | CPT/HCPCS: 97597; 97598 ==